=== PATIENT | female | born 1990 | race African-American/Black ===

== ENCOUNTER 2016-11-26 17:54 | Emergency (ER) | payer OTHER ==
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
[2016-11-26 20:28] VITALS: BP 148/85
== END 2016-11-26 20:27 | disposition home or self-care (01) ==
LOC: ER 17:54
DX: S16.1XXD Strain of muscle, fascia and tendon at neck level, subsequent encounter (principal); M25.512 Pain in left shoulder; M25.561 Pain in right knee; M54.2 Cervicalgia; R51 Headache; E66.01 Morbid (severe) obesity due to excess calories; Z68.41 Body mass index [BMI] 40.0-44.9, adult; V87.7XXD Person injured in collision between other specified motor vehicles (traffic), subsequent encounter
CPT/HCPCS: 99283